=== PATIENT | female | born 1950 | race African-American/Black ===

== ENCOUNTER → 2016-09-17 | Outpatient (CLI) | payer MEDICARE ==
[~2016-09-17] MED LIST: CLINORIL PO; MULTI VITAMIN1 EACH PO; NEURONTIN300 MG PO; OMEPRAZOLE40 M1 PO; PREVACID SOLUTA30 M1 PO; PRILOSEC40 MG; PROZAC PO; TRAZODONE HCL100 MG PO; ZOCOR PO
--- NOTE | ~2016-09-17 | CR173 ---
[facility] A Service of [facility] RADIOLOGY TEXT RESULTS PATIENT: YUMIKO FUNG LOCATION: [facility] : 50 UNIT #: [id number] AGE: [address]: Aliya Marquez MD SEX: F ORDER DR: [id number] [facility] [address] [place], [place] [address] [id number] O MR#: [id number] Acc #: [id number] NAME: YUMIKO FUNG. : 1950 SEX: F STUDY DATE/TIME: 09/17/2016 11:55 UNIT: [facility] ROOM: STUDY DESCRIPTION: CR Knee 3 Views Rt Attending Physician: Aliya Marquez M.D. Referring Physician: Aliya Marquez M.D. Ordering Physician: Aliya Marquez M.D. Primary Care Physician: Hollie Bird M.D. MEDICAL IMAGING REPORT This report is preliminary unless electronic signature is present EXAM 3 views right knee 09/17/2016 HISTORY 66-year-old female with posteromedial knee pain for 6 months, occasionally knees gave out. COMPARISON None. FINDINGS AP, sunrise patellar view and lateral views were obtained with weightbearing, as requested. No fracture. No dislocation. Mild medial compartment joint space narrowing. No appreciable osteophyte ptosis. No joint effusion. No osteolytic osteoblastic abnormality. IMPRESSION Mild medial compartment joint space narrowing. Otherwise, normal 3 views right knee. Dictated by... Lisa Meehan M.D. THIS IS AN ELECTRONICALLY VERIFIED REPORT Lisa Meehan M.D. at 09/20/2016 8:33 AM [facility]/crow TD: 09/17/2016 19:35 JOB #: [id number] MEDICAL IMAGING REPORT Page 1 of 1 COPY
--- NOTE | ~2016-09-17 | CR172 ---
[facility] A Service of [facility] & [facility] RADIOLOGY TEXT RESULTS PATIENT: YUMIKO FUNG LOCATION: [facility] : 50 UNIT #: [id number] AGE: [address]: Aliya Marquez MD SEX: F ORDER DR: [id number] [facility] [address] [place], [place] [address] [id number] O MR#: [id number] Acc #: [id number] NAME: YUMIKO FUNG. : 1950 SEX: F STUDY DATE/TIME: 09/17/2016 11:56 UNIT: [facility] ROOM: STUDY DESCRIPTION: CR Knee 3 Views Lt Attending Physician: Aliya Marquez M.D. Referring Physician: Aliya Marquez M.D. Ordering Physician: Aliya Marquez M.D. Primary Care Physician: Hollie Bird M.D. MEDICAL IMAGING REPORT This report is preliminary unless electronic signature is present EXAM 3 views of the left knee 09/17/2016 HISTORY Bilateral knee pain posteromedially with knees occasionally giving out. Symptoms present for 6 months. No documented injury. COMPARISON None. FINDINGS AP, sunrise patellar and lateral views were obtained with weightbearing, as requested. No fracture. No dislocation. Mild medial compartment joint space narrowing. No joint effusion. No osteolytic or osteoblastic abnormality. No appreciable osteophyte ptosis IMPRESSION Mild medial compartment joint space narrowing. Otherwise, normal 3 views of the left knee. Dictated by... Lisa Meehan M.D. THIS IS AN ELECTRONICALLY VERIFIED REPORT Lisa Meehan M.D. at 09/20/2016 8:33 AM [facility]/crow TD: 09/17/2016 19:44 JOB #: [id number] MEDICAL IMAGING REPORT Page 1 of 1 COPY
== END | disposition home or self-care (01) ==
LOC: CRAD 11:41
DX: M17.0 Bilateral primary osteoarthritis of knee (principal); M25.862 Other specified joint disorders, left knee; M25.861 Other specified joint disorders, right knee
CPT/HCPCS: 73562